=== PATIENT | male | born 1980 | race Caucasian/White ===

== ENCOUNTER 2019-02-14 12:12 | Inpatient (IN) | payer BC ==
[2019-02-14] MEDS ORDERED: Iopamidol-370 76% 500 ML 1 ML ONE (13:23)
--- NOTE | 2019-02-14 13:24 | CT ---
EXAM: CTA of the chest HISTORY: Shortness of breath and chest pain COMPARISON: None TECHNIQUE: Multiple contiguous axial images were obtained a CTA of the chest with contrast per pulmon roxanna embolism protocol. 3-D oblique MIP reformats and direct coronal reformats were performed. FINDINGS: HEART: Normal in size without focal cardiac abnormality. PULMONARY ARTERIES: Normal in caliber without filling defects to suggest pulmonary emboli. MEDIASTINUM: No hilar or mediastinal lymphadenopathy. LUNGS: Diffuse groundglass opacities in the lungs are seen. No consolidation or mass is present. PLEURAL SPACE: No pleural effusion or pneumothorax. CHEST WALL SOFT TISSUES: Unremarkable VISUALIZED OSSEOUS STRUCTURES: Unremarkable VISUALIZED SUBDIAPHRAGMATIC STRUCTURES: Unremarkable IMPRESSION: 1. No evidence of pulmonary thromboembolism 2. Diffuse groundglass attenuation in the lungs may represent pulmonary edema or atypical multifocal infiltrates.
[2019-02-14] MEDS ORDERED: cefTRIAXone\\ROCEPHIN 1 GM VIAL ONE (14:07)
[2019-02-14 14:41] LABS: #Eosinphils 0.2 thou/uL (0.0-0.7); #Lymphocytes 0.8 thou/uL (1.20-3.40); #Monocytes 0.7 thou/uL (0.11-0.59); #Neutrophils 10.3 thou/uL (1.40-6.50); %Basophils 0.1 % (0.0-1.0); %Eosinophils 1.6 % (0.0-10.0); %Lymphocytes 6.6 % (21.0-51.0); %Monocytes 5.8 % (0.0-10.0); %Neutrophils 85.8 % (42.0-75.0); Hemoglobin 13.4 g/dL (14.0-18.0); Mean Corpuscular HGB CONC 33.3 g/dL (32.0-36.0); Mean Corpuscular Hemoglobin 29.7 pg (27.0-31.0); Mean Corpuscular Volume 89.1 fL (78.0-98.0); Mean Platelet Volume 7.3 fL (7.4-10.4); Platelet Count 274 thou/uL (130-400); RBC Distribution Width 11.2 % (11.5-14.5); Red Blood Cell (RBC) Count 4.53 mill/uL (4.70-6.10); White Blood Cell (WBC) Count 12.1 thou/uL (4.8-10.8)
[2019-02-14 15:04] LABS: ALT (SGPT) 21 U/L (8-55); AST (SGOT) 34 U/L (5-34); Albumin 3.4 g/dL (3.5-5.0); Alkaline Phosphatase 291 U/L (40-110); Anion Gap 17 mmol/L (10-20); BUN (Urea Nitrogen) 11 mg/dL (8.9-20.6); Bilirubin, Total 0.7 mg/dL (0.2-1.2); Calc. Creatinine Clearance 0 mL/min (70-130); Calcium 8.6 mg/dL (7.8-10.44); Carbon Dioxide 25 mmol/L (22-29); Chloride 99 mmol/L (98-107); Estimated GFR-MDRD Greater than 90; Globulin 2.9 g/dL (2.4-3.5); Glucose 84 mg/dL (70-105); Potassium 4.2 mmol/L (3.5-5.1); Protein, Total 6.3 g/dL (6.0-8.3); Sodium 137 mmol/L (136-145)
[2019-02-14] MEDS ORDERED: Azithromycin 500 MG VIAL ONE (15:22)
[2019-02-14] MEDS ORDERED: Senokot S 8.6-50 MG TAB PO PRN (15:51)
[2019-02-14] MEDS ORDERED: Sodium Chloride 0.9% 1,000 ML IV SCH (16:00)
[2019-02-14 17:44] VITALS: BMI 26.9
[2019-02-14] MEDS: Famotidine 20 MG TAB PO SCH (19:43)
--- NOTE | 2019-02-14 19:48 | HP ---
CHIEF COMPLAINT: Shortness of breath. HISTORY OF PRESENT ILLNESS: Mr. Arredondo is a 38-year-old man who reported to the emergency room today after going to the Urgent Care for some shortness of breath. The patient was found to be hypoxic with SpO2 of 88 at the Urgent Care. He was put on 4 L nasal cannula and was given one DuoNeb and sent to [facility] Emergency Room for further evaluation. Reports that he has been feeling ill since last Wednesday. Reports that he has been around two coworkers who have had a flu-like illness. Reports that he was not feeling better about a day, so he went to Urgent Care. Reports some shortness of breath. He denied chest pain or palpitations. He reports he is a former smoker of tobacco, smoked about a pack of cigarettes for about 10 to 15 years, quit and vapes and uses JUUL and reports that he uses one cartridge per day and has used THC cartridges as well. In the emergency room, he was given Rocephin and azithromycin. His D-dimer at the Urgent Care was increased, so they did a CTA of the chest, thorax, which showed no evidence of pulmonary thromboemboli, but did see some diffuse ground-glass attenuation in the lungs which may represent pulmonary edema or atypical multifocal infiltrate. On room air in the emergency room, he did drop down into the upper 80s and is saturating between 94% to 96% on 2 L nasal cannula. He will be admitted to medical for further management on IV antibiotics. REVIEW OF SYSTEMS: The patient is alert and oriented to person, place, and time. He does report some shortness of breath, dyspnea on exertion, has had flu-like symptoms including a fever, body aches since last . Denies abdominal pain, nausea, vomiting, diarrhea, constipation. All systems are reviewed and are negative unless mentioned in the HPI. PAST MEDICAL HISTORY: None. SURGICAL HISTORY: [place] teeth removed in 2002. SOCIAL HISTORY: He is a social drinker. Drinks several times a month. Denies drug use. He quit cigarette smoking 10 years ago. Smoked at that time about 15 years and currently vapes daily and uses JUUL cartridges. He lives at home. ALLERGIES: NONE. CURRENT MEDICATIONS: Adderall 20 mg p.o. daily. PHYSICAL EXAMINATION: VITAL SIGNS: Blood pressure 120/83, pulse is 82, respirations 26, temperature is 99.1, pO2 sats are 95% on 2 L. CONSTITUTIONAL: The patient appears pain free. He is alert and oriented to person, place, and time. HEENT: Head is atraumatic and normocephalic. Eyes; eyelids are normal to inspection. Pupils equal, round, and reactive to light. ENT; mouth exam is normal. Mucous membranes are moist. NECK: Normal range of motion. Trachea is midline. RESPIRATORY/CHEST: Breath sounds are clear. Chest expansion is equal. CARDIOVASCULAR: Regular heart rate and rhythm. Heart sounds are normal. ABDOMEN: Nontender. Bowel sounds are heard. BACK: Normal range of motion. No tenderness. EXTREMITIES: Upper extremity, motor strength is normal. Sensation is normal. Radial pulses are normal. Lower extremity, normal range of motion, normal strength. Sensation intact. Pedal pulses are normal. NEUROLOGIC: Oriented to person, place, and time. Speech is normal. SKIN: Warm, dry, normal in color. PSYCHIATRIC: Has a normal affect. DIAGNOSTIC DATA: EKG shows a normal sinus rhythm, beats per minute 84. Conduction normal, ST segments normal, T-waves are normal. LABORATORY DATA: White blood cell count 12.1, hemoglobin 13.4, hematocrit is 40.4, platelet count is 274. Alkaline phosphatase 291, albumin 3.4. Troponin undetectable. PLAN/ASSESSMENT: 1. Pneumonia with some interstitial disease. We will continue the Rocephin and azithromycin IV piggyback daily, DuoNeb q.6 while awake. O2 as needed for sats under 92%. Recheck lab values in the morning. 2. Deep venous thrombosis and gastrointestinal prophylaxis have been started. Job ID: [id number]
[2019-02-15] MEDS: Acetaminophen 325 MG TAB PO PRN ×2 (05:42→20:43)
[2019-02-15 07:30] LABS: #Eosinphils 0.3 thou/uL (0.0-0.7); #Lymphocytes 1.5 thou/uL (1.20-3.40); #Monocytes 0.7 thou/uL (0.11-0.59); #Neutrophils 7.6 thou/uL (1.40-6.50); %Basophils 0.1 % (0.0-1.0); %Eosinophils 2.8 % (0.0-10.0); %Lymphocytes 14.8 % (21.0-51.0); %Monocytes 6.7 % (0.0-10.0); %Neutrophils 75.6 % (42.0-75.0); Hemoglobin 13.3 g/dL (14.0-18.0); Mean Corpuscular HGB CONC 32.7 g/dL (32.0-36.0); Mean Corpuscular Hemoglobin 29.6 pg (27.0-31.0); Mean Corpuscular Volume 90.5 fL (78.0-98.0); Platelet Count 272 thou/uL (130-400); RBC Distribution Width 11.3 % (11.5-14.5); Red Blood Cell (RBC) Count 4.48 mill/uL (4.70-6.10)
[2019-02-15 07:48] LABS: Anion Gap 14 mmol/L (10-20); BUN (Urea Nitrogen) 7 mg/dL (8.9-20.6); Calc. Creatinine Clearance 142 mL/min (70-130); Calcium 9.3 mg/dL (7.8-10.44); Carbon Dioxide 27 mmol/L (22-29); Chloride 103 mmol/L (98-107); Estimated GFR-MDRD Greater than 90; Glucose 89 mg/dL (70-105); Potassium 3.9 mmol/L (3.5-5.1); Sodium 140 mmol/L (136-145)
[2019-02-15] MEDS: Famotidine 20 MG TAB PO SCH ×2 (08:53→20:42)
[2019-02-15] MEDS ORDERED: Enoxaparin Sodium 40 MG/0.4 ML SYRINGE SC SCH (09:00)
[2019-02-15] MEDS ORDERED: Calcium Carbonate 500 MG ChewTAB PO PRN (09:54)
[2019-02-15] MEDS ORDERED: Ondansetron PF 4 MG/2 ML Vial IVP PRN (09:54)
[2019-02-15] MEDS ORDERED: Ondansetron ODT 4 MG TAB PO PRN (09:54)
[2019-02-15] MEDS ORDERED: Loratadine 10 MG TAB PO PRN (10:33)
--- NOTE | 2019-02-15 11:19 | CON ---
DATE OF CONSULTATION: CONSULTING PHYSICIAN: Anthony Palafox MD REASON FOR CONSULTATION: Interstitial pneumonitis. HISTORY OF PRESENT ILLNESS: The patient is a 38-year-old male who presents to the hospital with 4-5 days of increasing shortness of breath and a dry cough. He readily admits that he has been smoking THC through a Juul vape pen. He realized that could be the problem and came to the hospital, and began experiencing more shortness of breath. He was found to be hypoxic on presentation. He had a CT done, which showed ground-glass attenuation in the lower lobes bilaterally. I have reviewed the CT personally and agree with the radiologist's report. He has no previous history of lung disease. PAST MEDICAL HISTORY: ADHD. PAST SURGICAL HISTORY: None except for wisdom tooth removal. SOCIAL HISTORY: Social drinker. 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 He is originally from [place]. He quit smoking cigarettes 10 years ago, but does the Juul vape pen THC several times a day and lives at home. ALLERGIES: NONE. MEDICATIONS: Adderall 20 mg daily. REVIEW OF SYSTEMS: Twelve-point review of systems is otherwise negative. PHYSICAL EXAMINATION: VITAL SIGNS: O2 saturations were 88% on room air, it is 93% on 2 L nasal cannula, respiratory rate 16, pulse 83, temperature 98.6, and blood pressure 133/77. HEENT: Unremarkable. NECK: Without adenopathy or JVD. LUNGS: He has inspiratory crackles at both bases, best heard posteriorly. CARDIOVASCULAR: S1, S2. Regular without murmur. ABDOMEN: Soft and nontender. EXTREMITIES: No clubbing, cyanosis, or edema. LABORATORY DATA: White blood cell count 10, hematocrit 40, and platelet count 272. Sodium 140, potassium 3.9, chloride 103, CO2 of 27, BUN 7, creatinine 0.[address] was reviewed, findings are as noted above. ASSESSMENT: This patient most likely has THC vaping related lung injury. Infectious pneumonitis is not out of the question, but given the clinical presentation, I would favor of vaping induced lung injury. RECOMMENDATIONS: 1. Oxygen for as long as he is hypoxic. 2. I would give him a brief course of antibiotics just in case it is infectious in origin. 3. IV steroids. 4. Monitor closely for the next 48 hours. Job ID: [id number]
[2019-02-15] MEDS: cefTRIAXone\\ROCEPHIN 2 GM in Sodium Chloride 0.9% 100 ML IVPB SCH (13:42)
[2019-02-15] MEDS: methylPREDNISolone Sod Succ 40 MG VIAL IVP SCH ×3 (13:42→23:32)
[2019-02-15] MEDS ORDERED: Azithromycin 500 MG in Sodium Chloride 0.9% 250 ML 250 ML IVPB SCH (14:00)
[2019-02-15] MEDS: ALPRAZolam 0.25 MG TAB PO PRN ×2 (15:27→20:44)
--- NOTE | 2019-02-15 16:23 | CON ---
DATE OF CONSULTATION: 02/15/2019 REASON FOR CONSULTATION: Pneumonitis. HISTORY OF PRESENT ILLNESS: A 38-year-old, who has no significant past medical history and has developed progressively worsening dyspnea, chest pain, cough. He has had significant exposure to inhaled E-cigarettes with various products including THC and on arrival, he was hypoxemic with diffuse pulmonary infiltrates, has been started on broad-spectrum antimicrobial coverage, inhalers, methylprednisone. He is feeling a little better. Complaining of burning in the IV site. No headaches. No abdominal pain or diarrhea. No bleeding. No joint symptoms. MEDICAL HISTORY: Negative. SOCIAL HISTORY: Drinks occasionally. Smoke cigarettes 10 years ago and has been using E-cigarettes lately. He uses Bootleg products, not just the commercially available ones, sometimes with THC added. MEDICATIONS: Include; 1. Inhalers. 2. Methylprednisolone. 3. Ondansetron. 4. Fluticasone. 5. Rocephin. 6. Azithromycin. PHYSICAL EXAMINATION: VITAL SIGNS: He has been afebrile. Other vital signs are normal. SKIN: Not remarkable. Peripheral IV access. No lymphadenopathy. HEENT: Normal. NECK: Supple. LUNGS: With a few inspiratory crackles, mostly at the bases. HEART: S1 and S2, regular rate. No wheezing. ABDOMEN: Soft. Not distended or tender. No ascites. No bladder distention. GENITAL: Normal. MUSCULOSKELETAL: No joint inflammatory activity. NEUROLOGIC: Nonfocal. LABORATORY DATA: White cell count 12,000, now 10,000; hemoglobin 13; MCV 89; platelets 274; 85% neutrophils. Chemistry with alkaline phosphatase 291, albumin 3.4. ASSESSMENT: Diffuse pneumonitis with history of exposure to Bootleg vaping products including THC. 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 The patient presents with a [id number] pneumonitis and is currently on broad-spectrum antimicrobial coverage and steroids, probably antimicrobials can be discontinued and continue corticosteroids alone. The course of this illness is variable in the majority of patients, if they are not re-exposed, will improve steadily, although significant fraction will remain with residual pulmonary abnormalities in long-term. Some of them will have recrudescence due to re-exposure after discharge, quite a significant fraction end up in the ICU with more severe manifestation, but does not look like it is going to be the case here. We will check his HIV, hepatitis C, and RPR serologies for completeness sake. Job ID: [id number] MTDD
[2019-02-15 17:35] LABS: HIV (1/2) Antibody/Antigen Non-Reactive (NonReactive); HIV 1/2 INDEX 0.12 S/CO (<1.00); Hep C IgG Ab Non-Reactive (NonReactive); Hep C Index 0.08 S/CO (0-0.79); Syphilis Antibody Nonreactive (Nonreactive); Syphilis Antibody Index 0.06 S/CO (<1.00 Non-Reactive)
--- NOTE | 2019-02-15 20:09 | PDOC.HOSPP ---
- Subjective Encounter Date: 02/15/19 Encounter Time: 08:30 Subjective: Patient seen and examined for Pneumonia/Resp failure. Dry cough. SOB on mild exertion. No other complaints. No overnight events - Objective Vital Signs & Weight: Vital Signs (12 hours) Temp Pulse Resp BP BP Pulse Ox 02/15/19 19:49 98.1 F 94 20 124/77 97 02/15/19 19:38 78 12 95 02/15/19 16:00 99.6 F 91 18 108/69 92 L 02/15/19 15:01 92 16 95 02/15/19 11:11 98.7 F 88 16 119/77 95 02/15/19 10:25 83 16 97 Weight Weight 177 lb I&O: 02/14/19 02/15/19 02/16/19 06:59 06:59 06:59 Intake Total 1110 Balance 1110 Result Diagrams: 02/15/19 07:03 02/15/19 07:03 Radiology Reviewed by me: Yes (CT chest - Diffuse pneumonitis) Hospitalist ROS - Review of Systems Cardiovascular: denies: chest pain, palpitations, orthopnea, paroxysmal noc. dyspnea, edema, light headedness, other Gastrointestinal: denies: nausea, vomiting, abdominal pain, diarrhea, constipation, melena, hematochezia, other - Medication Medications: Active Medications Generic Name Dose Route Start Last Admin Trade Name Freq PRN Reason Stop Dose Admin Acetaminophen 650 mg 02/14/19 15:51 02/15/19 05:42 Tylenol PO 650 mg Q4H PRN Administration Headache/Fever/Mild Pain (1-3) Albuterol/Ipratropium 3 ml 02/14/19 19:00 02/15/19 19:38 Duoneb NEB 3 ml [id number] JANAE Administration Alprazolam 0.25 mg 02/15/19 10:34 02/15/19 15:27 Xanax PO 0.25 mg QIDPRN PRN Administration Anxiety Famotidine 20 mg 02/14/19 21:00 02/15/19 08:53 Pepcid PO 20 mg BID JANAE Administration Ceftriaxone Sodium 2 gm/ 100 mls @ 200 mls/hr 02/15/19 12:00 02/15/19 13:42 Sodium Chloride IVPB 100 mls Q24HR JANAE Administration Methylprednisolone Sodium Succinate 40 mg 02/15/19 12:00 02/15/19 17:32 Solu-Medrol IVP 40 mg Q6HR JANAE Administration - Exam General Appearance: NAD Heart: RRR, no gallops, no rubs, normal peripheral pulses Respiratory: no wheezes, normal chest expansion, rales, rhonchi Gastrointestinal: soft, non-tender, non-distended, normal bowel sounds Extremities: no cyanosis, no clubbing, no edema Neurological: no new deficit Psychiatric: normal affect, A&O x 3 Hosp A/P - Plan DVT proph w/SCDs Acute hypoxic resp failure Vaping induced lung injury Suspected Sepsis due to Pneumonia ? gram negative Tobacco dep GERD PLAN: Cont IV Ceftriaxone/Azithromycin Cont Nebs O2 supp Consult ID/Pulm
[2019-02-15] MEDS: guaiFENesin ER 600 MG TAB PO SCH (20:42)
[2019-02-16] MEDS: methylPREDNISolone Sod Succ 40 MG VIAL IVP SCH ×3 (05:41→17:33)
[2019-02-16] MEDS: Fluticasone Propionate Nasal Spray 16 gm Bottle NASAL SCH (08:19)
[2019-02-16] MEDS: Famotidine 20 MG TAB PO SCH ×2 (08:19→20:07)
[2019-02-16] MEDS: Azithromycin 250 MG TAB PO SCH (08:19)
[2019-02-16] MEDS: guaiFENesin ER 600 MG TAB PO SCH ×2 (08:19→20:07)
--- NOTE | 2019-02-16 08:35 | PRG ---
DATE OF SERVICE: 02/16/2019 SUBJECTIVE: He is feeling somewhat better. He is not coughing as much. OBJECTIVE: VITAL SIGNS: His temperature is 98.1, pulse 78, respirations 14, O2 saturations 95% on 2 L, it is between 89% and 91% on room air while standing up. HEENT: Unremarkable. NECK: No adenopathy or JVD. LUNGS: He has few inspiratory crackles bilaterally. CARDIAC: S1, S2. Regular. ABDOMEN: Soft. EXTREMITIES: No edema. HIV test was negative. ASSESSMENT: Likely vaping related lung injury. PLAN: 1. Continue hospitalization until his need for oxygen subsides. 2. Continue steroids and antibiotics. 3. He is having a repeat chest x-ray done today. 4. He has some severe anxiety issues. He may need to be started on something like Celexa or Lexapro long-term. Job ID: [id number]
--- NOTE | 2019-02-16 10:03 | RAD ---
XR Chest Pa Lat STANDARD HISTORY: Pneumonia FINDINGS: The heart size is normal. The lungs are well expanded without focal areas of consolidation, pneumotho rax or pleural effusions. The patchy groundglass infiltrates noted on the CT scan of 02/14/2019 are not definitely seen on the current exam.
[2019-02-16] MEDS: cefTRIAXone\\ROCEPHIN 2 GM in Sodium Chloride 0.9% 100 ML IVPB SCH (11:36)
[2019-02-16] MEDS: Cepastat Lozenges 1 LOZ PO PRN (17:32)
[2019-02-16] MEDS: Diabetic Tussin 200 MG/10 ML UDCUP PO PRN (20:10)
[2019-02-16] MEDS: ALPRAZolam 0.25 MG TAB PO PRN (21:37)
--- NOTE | 2019-02-16 21:55 | PDOC.HOSPP ---
- Subjective Encounter Date: 02/16/19 Encounter Time: 10:30 Subjective: Patient seen and examined for Pneumonia. SOB slightly better. Sore throat +. No new complaints. No overnight events - Objective Vital Signs & Weight: Vital Signs (12 hours) Temp Pulse Resp BP Pulse Ox 02/16/19 20:00 98.1 F 84 18 119/78 90 L 02/16/19 18:26 76 16 90 L 02/16/19 17:36 85 16 95 02/16/19 14:10 91 12 92 L 02/16/19 11:44 102 H 16 92 L 02/16/19 10:37 86 14 92 L Weight Weight 177 lb I&O: 02/15/19 02/16/19 02/17/19 06:59 06:59 06:59 Intake Total 1110 1560 Balance 1110 1560 Result Diagrams: 02/15/19 07:03 02/15/19 07:03 Hospitalist ROS - Review of Systems Cardiovascular: denies: chest pain, palpitations, orthopnea, paroxysmal noc. dyspnea, edema, light headedness, other Gastrointestinal: denies: nausea, vomiting, abdominal pain, diarrhea, constipation, melena, hematochezia, other - Medication Medications: Active Medications Generic Name Dose Route Start Last Admin Trade Name Freq PRN Reason Stop Dose Admin Acetaminophen 650 mg 02/14/19 15:51 02/15/19 20:43 Tylenol PO 650 mg Q4H PRN Administration Headache/Fever/Mild Pain (1-3) Albuterol/Ipratropium 3 ml 02/14/19 19:00 02/16/19 18:26 Duoneb NEB 3 ml [id number] JANAE Administration Alprazolam 0.25 mg 02/15/19 10:34 02/16/19 21:37 Xanax PO 0.25 mg QIDPRN PRN Administration Anxiety Azithromycin 500 mg 02/16/19 09:00 02/16/19 08:19 Zithromax PO 02/19/19 09:01 500 mg DAILY JANAE Administration Famotidine 20 mg 02/14/19 21:00 02/16/19 20:07 Pepcid PO 20 mg BID JANAE Administration Fluticasone Propionate 0 gm 02/16/19 09:00 02/16/19 08:19 Flonase Nasal [place] NASAL 1 spr DAILY JANAE Administration Guaifenesin 600 mg 02/15/19 21:00 02/16/19 20:07 Mucinex PO 600 mg Q12HR JANAE Administration Guaifenesin 200 mg 02/16/19 16:09 02/16/19 20:10 Robitussin Sf PO 200 mg Q4H PRN Administration Cough Ceftriaxone Sodium 2 gm/ 100 mls @ 200 mls/hr 02/15/19 12:00 02/16/19 11:36 Sodium Chloride IVPB 100 mls Q24HR JANAE Administration Methylprednisolone Sodium Succinate 40 mg 02/15/19 12:00 02/16/19 17:33 Solu-Medrol IVP 40 mg Q6HR JANAE Administration Sodium Chloride 10 ml 02/14/19 15:51 02/16/19 08:20 Flush - Normal Saline IVF 10 ml PRN PRN Administration Saline Flush Throat Lozenges 1 elidia 02/16/19 16:09 02/16/19 17:32 Cepastat Lozenges PO 1 elidia Q2H PRN Administration Sore Throat - Exam General Appearance: NAD Neck: supple Heart: RRR, no gallops Respiratory: no wheezes, rhonchi Gastrointestinal: soft, non-tender, normal bowel sounds Extremities: no edema Hosp A/P - Plan DVT proph w/SCDs Acute hypoxic resp failure Vaping induced lung injury Suspected Sepsis due to Pneumonia ? gram negative Tobacco dep GERD PLAN: Cont IV Ceftriaxone/ PO Azithromycin Cont IV Steroids Cont Nebs O2 supp GI prophylaxis Ambulate as tolerated
[2019-02-17] MEDS: methylPREDNISolone Sod Succ 40 MG VIAL IVP SCH ×2 (00:18→05:39)
--- NOTE | 2019-02-17 08:39 | PRG ---
DATE OF SERVICE: 02/17/2019 SUBJECTIVE: The patient feels better. He held his oxygen level up most of the day yesterday. It was down a little bit this morning. He feels somewhat congested. OBJECTIVE: VITAL SIGNS: Temperature 98.1, pulse 92, respirations 14, O2 saturations 96% on room air. HEENT: Unremarkable. NECK: No adenopathy or JVD. CHEST: Clear to auscultation without wheezing or rhonchi. CARDIAC: S1, S2. Regular. ABDOMEN: Soft. EXTREMITIES: No edema. His chest x-ray from yesterday looked very clear. ASSESSMENT: Vaping related lung injury, which is improving. PLAN: If he is able to walk around today without desaturating, he can go home. At the latest, I would think he would be going home tomorrow. I will go ahead and switch him over to oral prednisone. He should complete a 2-week taper off the prednisone. He needs to follow up in my office in about 3 weeks. Job ID: [id number]
[2019-02-17] MEDS: Cepastat Lozenges 1 LOZ PO PRN (08:59)
[2019-02-17] MEDS: Diabetic Tussin 200 MG/10 ML UDCUP PO PRN (08:59)
[2019-02-17] MEDS: Azithromycin 250 MG TAB PO SCH (08:59)
[2019-02-17] MEDS: guaiFENesin ER 600 MG TAB PO SCH ×2 (08:59→21:01)
[2019-02-17] MEDS: Famotidine 20 MG TAB PO SCH ×2 (09:00→21:01)
[2019-02-17] MEDS: Fluticasone Propionate Nasal Spray 16 gm Bottle NASAL SCH (09:00)
[2019-02-17] MEDS: cefTRIAXone\\ROCEPHIN 2 GM in Sodium Chloride 0.9% 100 ML IVPB SCH (12:35)
[2019-02-17] MEDS: Cefdinir 300 MG CAP PO SCH (21:01)
[2019-02-17] MEDS: ALPRAZolam 0.25 MG TAB PO PRN (21:07)
--- NOTE | 2019-02-17 23:25 | PDOC.HOSPP ---
- Subjective Encounter Date: 02/17/19 Encounter Time: 09:00 Subjective: Patient seen and examined for Pneumonia. SOB improving. O2 sats dropping on ambulation. No new complaints. No overnight events - Objective Vital Signs & Weight: Vital Signs (12 hours) Temp Pulse Resp BP Pulse Ox 02/17/19 19:44 98.4 F 60 19 121/71 93 L 02/17/19 19:27 57 L 14 94 L 02/17/19 16:50 98.5 F 75 18 109/72 95 02/17/19 14:32 75 14 93 L 02/17/19 12:02 97.7 F 81 18 126/71 91 L Weight Weight 177 lb I&O: 02/16/19 02/17/19 02/18/19 06:59 06:59 06:59 Intake Total 1835 Balance 1835 Result Diagrams: 02/15/19 07:03 02/15/19 07:03 Hospitalist ROS - Review of Systems Respiratory: reports: cough, dry. denies: shortness of breath, hemoptysis, SOB with excertion, pleuritic pain, sputum, wheezing, other Cardiovascular: denies: chest pain, palpitations, orthopnea, paroxysmal noc. dyspnea, edema, light headedness, other - Medication Medications: Active Medications Generic Name Dose Route Start Last Admin Trade Name Freq PRN Reason Stop Dose Admin Acetaminophen 650 mg 02/14/19 15:51 02/15/19 20:43 Tylenol PO 650 mg Q4H PRN Administration Headache/Fever/Mild Pain (1-3) Albuterol/Ipratropium 3 ml 02/14/19 19:00 02/17/19 19:27 Duoneb NEB 3 ml [id number] JANAE Administration Alprazolam 0.25 mg 02/15/19 10:34 02/17/19 21:07 Xanax PO 0.25 mg QIDPRN PRN Administration Anxiety Azithromycin 500 mg 02/16/19 09:00 02/17/19 08:59 Zithromax PO 02/19/19 09:01 500 mg DAILY JANAE Administration Cefdinir 300 mg 02/17/19 21:00 02/17/19 21:01 Omnicef PO 300 mg BID JANAE Administration Famotidine 20 mg 02/14/19 21:00 02/17/19 21:01 Pepcid PO 20 mg BID JANAE Administration Fluticasone Propionate 0 gm 02/16/19 09:00 02/17/19 09:00 Flonase Nasal [place] NASAL 2 spr DAILY JANAE Administration Guaifenesin 600 mg 02/15/19 21:00 02/17/19 21:01 Mucinex PO 600 mg Q12HR JANAE Administration Guaifenesin 200 mg 02/16/19 16:09 02/17/19 08:59 Robitussin Sf PO 200 mg Q4H PRN Administration Cough Sodium Chloride 10 ml 02/14/19 15:51 02/16/19 08:20 Flush - Normal Saline IVF 10 ml PRN PRN Administration Saline Flush Throat Lozenges 1 elidia 02/16/19 16:09 02/17/19 08:59 Cepastat Lozenges PO 1 elidia Q2H PRN Administration Sore Throat - Exam General Appearance: NAD Heart: RRR, no gallops Respiratory: no rales, rhonchi Gastrointestinal: soft, non-distended Extremities: no edema Hosp A/P - Plan DVT proph w/SCDs Acute hypoxic resp failure Vaping induced lung injury Suspected Sepsis due to Pneumonia ? gram negative Tobacco dep GERD PLAN: Change IV Ceftriaxone to PO Omnicef Cont PO Azithromycin Cont oral Steroids Cont Nebs and O2 supp Ambulate as tolerated DC home later today or in AM if stable
[2019-02-18] MEDS: predniSONE 20 MG TAB PO SCH (08:27)
[2019-02-18] MEDS: Azithromycin 250 MG TAB PO SCH (08:27)
[2019-02-18] MEDS: Cefdinir 300 MG CAP PO SCH ×2 (08:27→20:08)
[2019-02-18] MEDS: guaiFENesin ER 600 MG TAB PO SCH ×2 (08:27→20:08)
[2019-02-18] MEDS: Fluticasone Propionate Nasal Spray 16 gm Bottle NASAL SCH (08:28)
[2019-02-18] MEDS: Famotidine 20 MG TAB PO SCH ×2 (08:28→20:08)
--- NOTE | 2019-02-18 10:32 | PRG ---
DATE OF SERVICE: 02/18/2019 SUBJECTIVE: Kee Arredondo is better this morning. He said he is less short of breath, less cough. His x-ray of several days ago shows nonspecific shadows. OBJECTIVE: VITAL SIGNS: Saturations are 94% on room air, respiratory rate 24, temperature 98, blood pressure 134/79. CHEST: Decreased breath sounds. No wheezing. CARDIAC: Normal S1, S2. No gallops. ABDOMEN: No masses. ASSESSMENT AND PLAN: Status post respiratory failure, vape-related lung injury. He is better. He will go home and follow up with Dr. Burks in the office in several weeks. Continue prednisone for a total of 2 weeks. Job ID: [id number]
--- NOTE | 2019-02-18 17:11 | PDOC.HOSPP ---
- Subjective Encounter Date: 02/18/19 Encounter Time: 17:09 Subjective: Pt seen for followup re: acute hypoxic respiratory failure. States he feels better. had sputum with red flecks. - Objective Vital Signs & Weight: Vital Signs (12 hours) Temp Pulse Resp BP Pulse Ox 02/18/19 15:30 98.3 F 77 19 114/74 95 02/18/19 14:28 91 16 02/18/19 11:50 98.4 F 80 18 123/73 93 L 02/18/19 10:16 88 16 02/18/19 08:26 98.2 F 74 24 H 134/79 92 L 02/18/19 08:00 92 L 02/18/19 06:22 88 L 02/18/19 06:20 81 20 Weight Weight 177 lb I&O: 02/17/19 02/18/19 02/19/19 06:59 06:59 06:59 Intake Total 1835 Balance 1835 Result Diagrams: 02/15/19 07:03 02/15/19 07:03 Additional Labs: Labs and MARs reviewed by wa Hospitalist ROS - Review of Systems Respiratory: reports: cough, SOB with excertion, sputum. denies: dry, shortness of breath, hemoptysis, pleuritic pain, wheezing Cardiovascular: denies: chest pain, palpitations, orthopnea, paroxysmal noc. dyspnea, edema, light headedness - Medication Medications: Active Medications Generic Name Dose Route Start Last Admin Trade Name Freq PRN Reason Stop Dose Admin Acetaminophen 650 mg 02/14/19 15:51 02/15/19 20:43 Tylenol PO 650 mg Q4H PRN Administration Headache/Fever/Mild Pain (1-3) Albuterol/Ipratropium 3 ml 02/14/19 19:00 02/18/19 14:28 Duoneb NEB 3 ml [id number] JANAE Administration Alprazolam 0.25 mg 02/15/19 10:34 02/17/19 21:07 Xanax PO 0.25 mg QIDPRN PRN Administration Anxiety Azithromycin 500 mg 02/16/19 09:00 02/18/19 08:27 Zithromax PO 02/19/19 09:01 500 mg DAILY JANAE Administration Cefdinir 300 mg 02/17/19 21:00 02/18/19 08:27 Omnicef PO 300 mg BID JANAE Administration Famotidine 20 mg 02/14/19 21:00 02/18/19 08:28 Pepcid PO 20 mg BID JANAE Administration Fluticasone Propionate 0 gm 02/16/19 09:00 02/18/19 08:28 Flonase Nasal [place] NASAL 2 spr DAILY JANAE Administration Guaifenesin 600 mg 02/15/19 21:00 02/18/19 08:27 Mucinex PO 600 mg Q12HR JANAE Administration Guaifenesin 200 mg 02/16/19 16:09 02/17/19 08:59 Robitussin Sf PO 200 mg Q4H PRN Administration Cough Prednisone 40 mg 02/18/19 08:00 02/18/19 08:27 Prednisone PO 40 mg QAM-WM JANAE Administration Sodium Chloride 10 ml 02/14/19 15:51 02/16/19 08:20 Flush - Normal Saline IVF 10 ml PRN PRN Administration Saline Flush Throat Lozenges 1 elidia 02/16/19 16:09 02/17/19 08:59 Cepastat Lozenges PO 1 elidia Q2H PRN Administration Sore Throat - Exam General Appearance: NAD Eye: anicteric sclera ENT: moist mucosa Neck: supple, no JVD Heart: RRR, no rubs Respiratory: CTAB Gastrointestinal: soft, non-tender Extremities: no clubbing Neurological: no weakness Musculoskeletal: normal strength Psychiatric: normal affect, normal behavior Hosp A/P - Plan plan discussed w/ family, continue antibiotics, out of bed/ambulate, DVT proph w /SCDs ASSESSMENT: Acute hypoxic resp failure Vaping induced lung injury Suspected Sepsis due to Pneumonia ? gram negative Tobacco dep GERD PLAN: Continue omnicef Cont oral azithromycin Cont oral Steroids Cont Nebs and O2 supp Ambulate as tolerated Pt having desaturations with ambulation. Likely home tomorrow.
[2019-02-18] MEDS: ALPRAZolam 0.25 MG TAB PO PRN (20:08)
[2019-02-19 07:12] VITALS: BP 123/80; TEMP 97.2
[2019-02-19] MEDS: Famotidine 20 MG TAB PO SCH (08:51)
[2019-02-19] MEDS: Fluticasone Propionate Nasal Spray 16 gm Bottle NASAL SCH (08:52)
[2019-02-19] MEDS: Azithromycin 250 MG TAB PO SCH (08:52)
[2019-02-19] MEDS: guaiFENesin ER 600 MG TAB PO SCH (08:52)
[2019-02-19] MEDS: predniSONE 20 MG TAB PO SCH (08:52)
[2019-02-19] MEDS: Cefdinir 300 MG CAP PO SCH (08:52)
[2019-02-19] MEDS ORDERED: ALPRAZolam 0.25 MG TAB PO PRN (11:40)
--- NOTE | 2019-02-19 11:59 | PRG ---
DATE OF SERVICE: 02/19/2019 SUBJECTIVE: This morning, he is better, still coughing, but less short of breath. OBJECTIVE: VITAL SIGNS: Temperature 97, pulse 80, saturations are 96% on room air, blood pressure 120/80. CHEST: Minimal rhonchi. CARDIAC: Normal S1, S2. No gallops. ABDOMEN: No masses. IMPRESSION: Vape-associated respiratory failure, pneumonia. Taper prednisone over 2 weeks[address] Follow up with Dr. Burks in 2 weeks. Supportive care. Job ID: [id number]
--- NOTE | 2019-02-19 12:18 | DIS ---
DATE OF ADMISSION: 02/14/2019 DATE OF DISCHARGE: 02/19/2019 PRIMARY CARE PROVIDER: Unknown. DISCHARGE DIAGNOSES: 1. Acute hypoxic respiratory failure. 2. Vaping-induced lung injury. 3. Pneumonitis. CONDITION OF PATIENT ON THE DAY OF DISCHARGE: Stable. I assessed Mr. Arredondo on the day of discharge. He denies any chest pain or shortness of breath. Vital signs are stable, he is not hypoxic. S1 and S2 are heard, regular. Lungs are clear to auscultation bilaterally. CONSULTATIONS DURING THIS HOSPITALIZATION: Infectious Diseases, Dr. Smith, and Pulmonology, Dr. Santiago Burks. DISCHARGE MEDICATIONS: 1. Adderall 20 mg daily. 2. Cefdinir 300 mg 2 times a day for 5 more days. 3. Xanax 0.25 mg 2 times a day as needed. 4. DuoNeb 4 times a day as needed. 5. Prednisone taper over 2 weeks. HOSPITAL COURSE: Mr. Arredondo is a pleasant 38-year-old gentleman who was admitted to [facility] for vaping-related lung injury on February 14, 2019. Please refer to Ms. Jacobson's history and physical note dated February 14, 2019, for further details. He was seen by Pulmonology and Infectious Disease Services. He improved with oxygen, steroids, bronchodilators, and antibiotics. He is being discharged to home in a stable condition. During this hospitalization, syphilis serology was nonreactive. Hepatitis C serology was nonreactive. HIV serology was nonreactive. He has been advised to stop smoking. He has been advised to stop vaping. Many thanks for allowing me to participate in your patient's care. Please feel free to contact me with any questions or concerns. POST-ACUTE CARE DISCHARGE FOLLOWUP: With primary care provider in 3 days' time and with Pulmonology Service in 3 weeks' time. DISCHARGE DESTINATION: Home. TIME SPENT: Total amount of time spent coordinating this discharge: 32 minutes. Job ID: [id number]
--- NOTE | 2019-02-22 04:41 | PQF ---
[employer] Winform ViewerQUINN DRAPER DAVID [id number] [facility] [place] [id number] CLINICAL DOCUMENTATION CLARIFICATION FORM: POST DISCHARGE Addendum to original discharge summary date: ____ Late entry note date: __ DATE: 02/22/2019 ATTN: ENMA JACQUES Please exercise your independent, professional judgment in responding to the clarification form. Clinical indicators are provided on the bottom of this form for your review Please check appropriate box(s) to clarify if the following diagnosis has been ruled in or ruled out: SEPSIS (CDI/Coding list diagnosis here) [ x ] Ruled in diagnosis [ ] Continue to treat [ x] Resolved [ ] Ruled out diagnosis [ ] Cannot rule out diagnosis [ ] Other diagnosis [ ] Unable to determine In addition, please specify: Present on Admission (POA): [ x ] Yes [ ] No [ ] Unable to determine For continuity of documentation, please document condition throughout progress notes and discharge summary. Thank You. CLINICAL INDICATORS - SIGNS / SYMPTOMS / LABS WBC 12.1 on 02/14 - Documented in Laboratory Pulse 102 on 04/18 - Documented in Vital Signs RR 24 on 02/18 - Documented in Vital Signs Fever - Documented in H&P on 02/14 by Kavon Jordan Suspected sepsis due to pneumonia Gram Negative - Documented in PNs on 02/15 by Javy Cruz RISK FACTORS Pneumonia Acute hypoxic Respiratory failure - Documented in PNs on 02/15 by Javy Cruz Vaping induced lung injury - Documented in PNs on 02/15 by Javy Cruz TREATMENTS We will continue Rocephin and Azithromycin IV piggyback daily - Documented in H& P on 02/14 by Kavon Jordan Continue IV ceftriaxone/Azithromycin - Documented in PNs on 02/15 by Javy Cruz [employer] Winform Viewer (This form is maintained as a part of the permanent medical record) 2014 [employer] All Rights Reserved [email or web address] [not provided] MTDD
== END 2019-02-19 13:17 | disposition home or self-care (01) | DRG 871 ==
LOC: ERS 12:12 → T4-B 16:38
PROVIDERS: ADMIT Hospitalist; ATTEND Hospitalist
DX: A41.9 Sepsis, unspecified organism (principal); J96.01 Acute respiratory failure with hypoxia; T59.91XA Toxic effect of unspecified gases, fumes and vapors, accidental (unintentional), initial encounter; K21.9 Gastro-esophageal reflux disease without esophagitis; F90.9 Attention-deficit hyperactivity disorder, unspecified type; J68.4 Chronic respiratory conditions due to chemicals, gases, fumes and vapors; Z87.891 Personal history of nicotine dependence; Z79.899 Other long term (current) drug therapy
CPT/HCPCS: 36415; 71046; 71275; 80048; 80053; 83880; 84484; 85025; 86780; 86803; 87389; 87633; 93005; 94640; 96365; 96367; J0456; J0696; J1650; J2920; J3490; J7050; J7512; J7620; Q9967